=== PATIENT | female | born 1985 | race Caucasian/White ===

== ENCOUNTER 2024-05-23 06:31 | Inpatient (IN) | payer OTHER ==
[2024-05-23] VITALS (11 sets, daily range): BP systolic 105–137; BP diastolic 67–89; O2SAT 99
[~2024-05-23] VITALS: Ht 167.6 cm; Wt 85.7 kg
[2024-05-23] MEDS ORDERED: OXYTOCIN 20 UNITS/500ML RL PIGGYBAG IV ONE (08:18)
[2024-05-23] MEDS ORDERED: PRENATABS RX T1 EACH PO (08:28)
[2024-05-23] MEDS ORDERED: RINGERS SOLUTION,LACTATED 1,000 ML IV SCH (08:45)
[2024-05-23] MEDS ORDERED: OXYTOCIN 500 ML IV SCH (08:45)
[2024-05-23 09:07] LABS: HEMATOCRIT 35.9 % (36.0-45.00); HEMOGLOBIN 12.5 g/dL (12.0-15.00); MEAN CORPUSCULAR HEMOGLOBIN 31.8 pg (27.00-32.0); MEAN CORPUSCULAR HGB CONC 34.9 g/dl (32.0-36.0); PLATELET COUNT 268 K/uL (150-450); RED BLOOD COUNT 3.94 M/uL (4.00-6.00); RED CELL DISTRIBUTION WIDTH 13.1 % (11.5-14.5)
[2024-05-23 09:24] LABS: INR < 0.93; PARTIAL THROMBOPLASTIN TIME 28.4 SECONDS (22.0-34.0); PROTHROMBIN TIME 9.8 SECONDS (9.0-11.5)
[2024-05-23 09:33] LABS: ALBUMIN 3.1 gm/dL (3.4-5.0); BILIRUBIN TOTAL 0.35 mg/dL (0.3-1.2); CALCIUM 8.9 mg/dL (8.5-10.1); CREATININE SERUM 0.65 mg/dL (0.55-1.02); GFR 102.56; GLOBULINA 3.8 G/DL (2.4-3.5); POTASSIUM 4.03 mEq/L (3.5-5.1); TOTAL PROTEIN 6.9 gm/dL (6.4-8.2)
[2024-05-23] MEDS ORDERED: ONDANSETRON HCL 2 MG/ML VIAL ONE (11:58)
[2024-05-23] MEDS ORDERED: MORPHINE SULFATE 4 MG/ML VIAL IV ONE (12:00)
[2024-05-23] MEDS ORDERED: ONDANSETRON HCL 2 MG/ML VIAL IV ONE (12:15)
[2024-05-23] MEDS ORDERED: ERYTHROMYCIN BASE OPHT 1GM EACH TUBE OP ONE ×2 (12:27→13:45)
[2024-05-23] MEDS ORDERED: LIDOCAINE HCL 1% 10ML VIAL ONE (12:27)
[2024-05-23] MEDS ORDERED: OXYTOCIN 20 UNITS/1000ML RL PIGGYBAG IV ONE (12:27)
[2024-05-23] MEDS ORDERED: CHLORHEXIDINE GLUCONATE 120 ML BOTTLE TOP ONE (12:27)
[2024-05-23] MEDS ORDERED: IBUprofen 400 MG TABLET PO PRN (13:00)
[2024-05-23] MEDS ORDERED: CHLORHEXIDINE GLUCONATE 120 ML BOTTLE TP SCH (13:00)
[2024-05-23] MEDS ORDERED: OXYTOCIN 1,000 ML IV SCH (13:00)
[2024-05-23] MEDS ORDERED: LIDOCAINE HCL 1% 10ML VIAL PERCUT ONE (13:45)
[2024-05-24 02:33] VITALS: BP 102/66
[2024-05-24 06:36] LABS: HEMATOCRIT 30.1 % (36.0-45.00); HEMOGLOBIN 10.6 g/dL (12.0-15.00); MEAN CELL VOLUME 92.4 fL (80.00-100.00); MEAN CORPUSCULAR HEMOGLOBIN 32.4 pg (27.00-32.0); PLATELET COUNT 216 K/uL (150-450); RED BLOOD COUNT 3.26 M/uL (4.00-6.00); RED CELL DISTRIBUTION WIDTH 12.5 % (11.5-14.5)
[2024-05-24 09:00] VITALS: BP 133/80
[2024-05-24] MEDS ORDERED: DOCUSATE SODIUM 100MG CAP PO SCH (10:19)
[2024-05-24 16:00] VITALS: BP 127/77
[2024-05-25] VITALS: BP 115/68
[2024-05-25 08:52] VITALS: BP 101/68
[2024-05-25 13:03] VITALS: BP 100/65
== END 2024-05-25 14:08 | disposition home or self-care (01) | DRG 807 ==
LOC: LDR 06:31 → OB/GYN 13:22
PROVIDERS: Obstetrics & Gynecology; ADMIT Obstetrics & Gynecology; ATTEND Obstetrics & Gynecology
PROC: 10E0XZZ Delivery of Products of Conception, External Approach (ICD-10-PCS; principal; 2024-05-23)
PROC: 0UQG7ZZ Repair Vagina, Via Natural or Artificial Opening (ICD-10-PCS; 2024-05-23)
PROC: 0UQMXZZ Repair Vulva, External Approach (ICD-10-PCS; 2024-05-23)
DX: O71.4 Obstetric high vaginal laceration alone (principal); O71.82 Other specified trauma to perineum and vulva; Z37.0 Single live birth; Z3A.38 38 weeks gestation of pregnancy; Z20.822 Contact with and (suspected) exposure to COVID-19